=== PATIENT | female | born 1960 | race Caucasian/White ===

== ENCOUNTER → 2017-11-06 | Outpatient (CLI) | payer OTHER ==
[~2017-11-06] MED LIST: ASCO250T4 PO; CHOL100010 PO; CYAN100T PO
--- NOTE | 2017-11-06 10:27 | DIAGNOSTIC IMAGING REPORT ---
(ABDON/BLAD)RETROPERITON COMP HISTORY: 57 years-old Female R31.29 Hematuria, [id number] acute hematuria COMPARISON: PET CT 09/13/2017 TECHNIQUE: Multiple real-time significant images of the kidneys and bladder were obtained assessing grayscale appearance and color flow FINDINGS: Right kidney measures 10.5 x 4.9 x 4.7 cm and is unremarkable without renal calculi, hydronephrosis or suspicious mass lesion. External renal pelvis. Incidental note is made of a 1.0 cm cyst of the right hepatic lobe adjacent to the superior pole right kidney. The left kidney measures 10.7 x 4.8 x 4.8 cm and is unremarkable without renal calculi, hydronephrosis or suspicious mass lesion. Bladder is unremarkable with bilateral ureteral jets noted. IMPRESSION: 1. Unremarkable sonographic appearance of the bilateral kidneys without renal calculi or hydronephrosis. 2. External renal pelvis on the right. 3. Urinary bladder appears to be within normal limits. The above report was generated using voice recognition software. It may contain grammatical, syntax or spelling errors. Electronically signed by: Ge Iqbal M.D. 11/06/2017 10:25 AM Dictated Date/Time: 11/06/2017 10:23 AM
== END | disposition home or self-care (01) ==
LOC: C.ULTR 09:26
PROVIDERS: ATTEND Urology
DX: R31.29 Other microscopic hematuria (principal)

== ENCOUNTER → 2017-11-28 | Outpatient (CLI) | payer OTHER ==
[~2017-11-28] MED LIST changes: -ASCO250T4 PO; -CHOL100010 PO; +CHOL1CAP27 PO; -CYAN100T PO; +CYAN50005 PO; +ECHI450C PO; +MULT-190 PO; +POLY1SOL6 OPB; +TURM500T PO; +[UNRECOGNIZED DRUG - OTHER] PO
[2017-11-28 15:19] LABS: BASO % 0.2 %; BASO ABS # 0.01 K/uL (0-0.2); EOS % 3.7 %; EOS ABS # 0.17 K/uL (0-0.5); HEMATOCRIT 40.3 % (37-47); HEMOGLOBIN 13.4 g/dL (12.0-16.0); IG# 0.01 K/uL (0.00-0.02); LYMPH % 34.6 %; LYMPH ABS # 1.58 K/uL (1.2-3.4); MEAN CORPUSCULAR HEMOGLOBIN 31.6 pg (25-34); MEAN CORPUSCULAR HGB CONC 33.3 g/dl (32-36); MEAN PLATELET VOLUME 10.3 fL (7.4-10.4); MONO ABS # 0.32 K/uL (0.11-0.59); NEUT % 54.3 %; NEUT ABS # 2.48 K/uL (1.4-6.5); PLATELET COUNT 264 K/uL (130-400); RED CELL DISTRIBUTION WIDTH SD 48.3 fL (36.4-46.3); WHITE BLOOD COUNT 4.57 K/uL (4.8-10.8)
[2017-11-28 16:16] LABS: BLOOD UREA NITROGEN 10 mg/dl (7-18); CARBON DIOXIDE 31 mmol/L (21-32); CREATININE 0.77 mg/dl (0.60-1.20); GLUCOSE 95 mg/dl (70-99); POTASSIUM 3.5 mmol/L (3.5-5.1); SODIUM 141 mmol/L (136-145)
== END | disposition home or self-care (01) ==
LOC: C.CPL 14:34
PROVIDERS: ATTEND Urology
DX: Z01.818 Encounter for other preprocedural examination (principal)